=== PATIENT | male | born 1945 | race Caucasian/White ===

== ENCOUNTER → 2017-07-19 | Outpatient (CLI) | payer OTHER | LOC: FIMAGING 12:11 | PROVIDERS: ATTEND Internal Medicine | DX: D35.1 Benign neoplasm of parathyroid gland (principal) | CPT/HCPCS: 78070; A9500 ==

== ENCOUNTER → 2018-05-30 | Outpatient (CLI) | payer OTHER | LOC: FCPNEURO 21:30 | PROVIDERS: ATTEND Psychiatry & Neurology Sleep Medicine | DX: G47.52 REM sleep behavior disorder (principal) ==

== ENCOUNTER 2018-07-24 15:12 | Observation (INO) | payer OTHER ==
--- NOTE | 2018-07-24 16:02 | GHP ---
[f rep st] HISTORY AND PHYSICAL DATE OF ADMISSION: 07/24/2018 ADMITTING DIAGNOSIS: Nausea and dehydration. PAST MEDICAL HISTORY: Essential hypertension, coronary artery disease, posttraumatic stress disorder , anxiety, depression, BPH, mitral regurgitation, chronic kidney disease stage 3, status post parathy roidectomy, and obstructive sleep apnea. PAST SURGICAL HISTORY: Appendectomy and partial colon removal in 1994, right rotator cuff surgery in 2009, tonsillectomy as a child, and status post 1 stent placement to the circumflex in 2012. FAMILY HISTORY: Father diseased age 48 from [place]. Mother at age 79 from congestive heart madonna lure and abdominal aortic aneurysm. Siblings: brother with history of CVA, CABG in his 60s . SOCIAL HISTORY: Tobacco use: Nonsmoker. ALLERGIES: Cephalexin causes GI distress. HISTORY PRESENTING ILLNESS: Al is a 72-year-old male who presented to the office today complaining of about a 1 month history of intermittent nausea and vomiting. He says that it initially started w ith about a 4 day bout of nausea and vomiting, which seemed to resolve independently but then returne d about 4 days later, lingered for a couple of weeks and then resolved again. However, over the past 5 or so days he has been experiencing severe severe nausea and episodes of emesis throughout the day , which also wake him up during the night so that he vomits. He reports that he has been vomiting an ywhere from 4-6 times per day and has not been able to keep any food or fluids down for 5 days now. He also says he has not been able to take any medications. Also of note, he was seen in the office o n Sunday for a large, approximately 8 cm in diameter, abscess to his mid upper back. The abscess was drained and cultured revealing Proteus as a primary organism, Proteus mirabilis. He again though parker s not been able to take his antibiotics for treatment of this. He did see Dr. Ishaan Crooks to discu ss surgical drainage of the abscess, as well as multiple other cystic lesions that he has scattered o n his back and upper extremities. REVIEW OF SYSTEMS: GENERAL: Endorses chills and fatigue. Denies headache. ENT: Denies sore throa ts, sinus pressure or pain. RESPIRATORY: Denies cough, wheeze, shortness of breath. CARDIOVASCULAR : Denies chest pain, palpitations, irregular heartbeat, dizziness, lightheadedness. GI: Denies abd ominal pain, blood in stool, constipation, or diarrhea. Endorses nausea, vomiting. Does report 1 ep isode of a small amount of blood in his emesis a couple of days ago. MUSCULOSKELETAL: Denies joint aching or swelling. SKIN: Denies rash, itching, or hives. Complains of abscess to upper back, as w ell as cysts generally across back. NEUROLOGIC: Denies balance difficulty, difficulty speaking, diz ziness, fainting, lightheadedness. PSYCHIATRIC: Denies any acute mood changes. PHYSICAL EXAMINATION: GENERAL: Alert, oriented, in no acute distress, though does appear to be ill. HEAD: Normocephalic, atraumatic. EYES: EOMI. Pupils equal, round, reactive. SKIN: Abscess siddhartha suring approximately 8 cm in diameter to mid upper back with surrounding erythema. Skin is otherwise warm and dry. HEART: S1, S2. Regular rate and rhythm. No murmurs, rubs, gallops. LUNGS: Clear to auscultation bilaterally. No wheezing, rhonchi, or rales. ABDOMEN: Soft, nontender, nondistende d. Positive bowel sounds. EXTREMITIES: Without edema. NEUROLOGIC: Alert and oriented. Cooperati ve with exam. Gait normal. Strength and sensation normal. PSYCH: Mood and affect in full range. Good eye contact. Cognitive function intact. Cooperative with exam. ASSESSMENT AND PLAN: 1. Nausea. Labs pending including blood cultures. P.r.n. antiemetics. No obvious source of infect ion or cause of the nausea. 2. Dehydration. Fluid resuscitation to achieve rehydration. We will restart p.o.'s once he is able to tolerate them. 3. Abscess. Wound culture from the office identifies Proteus mirabilis as the primary organism. We will start IV antibiotics, as patient is unable to tolerate p.o. DISPOSITION: We will admit as observation during further workup. /[id number]/MODL
[2018-07-24] MEDS ORDERED: ONDANSETRON 4 MG/2 ML VIAL IVP PRN (16:06)
[2018-07-24] MEDS ORDERED: ACETAMINOPHEN 325 MG TAB PO PRN (16:06)
[2018-07-24] MEDS ORDERED: NS 1,000 ML IV ONE ×2 (16:08→23:30)
[2018-07-24 17:09] LABS: PLATELET COUNT 241 10^3/uL (150-400)
[2018-07-25] MEDS: LR 1,000 ML IV SCH ×2 (06:20→13:47)
--- NOTE | 2018-07-25 08:27 | ASMTCMCOM ---
CM Note CM Note Notes: Met with Pt & Chart reviewed for discharge. Al is a 72yr old admitted with intermittent nausea and dehydration for the past month. Pt has a Hx of Essential hypertension, CAD, PTSD, Anxiety, Depression, BPH, Mitral regurgitation, Chronic Kidney disease stage 3, sleep apnea. s/p Stent to circumflex 2012. Also, Pt has an abscess in his upper back that IV antibiotic will be started because he cannot take PO at this time. Dr Crooks will consult. Pt live in [place] with his partner Lori of 20yrs and they both have adult children in the area. Pt will likely return home independently with Lori when medically cleared. CM available if needs arise. PLAN: Likely Home Independently Date Signed: 07/25/2018 08:26 AM Electronically Signed By:Edwige Segura
[2018-07-25] MEDS: ONDANSETRON DISINTEGRATING 4 MG TAB PO PRN ×2 (09:07→13:49)
--- NOTE | 2018-07-25 09:49 | SOAPPROG ---
SOAP Progress Note Assessment/Plan: Assessment: 72 yo male with n/v for weeks w/ dehydration and inability to keep in food or medications, w/ recent back abscess treated by Dr Crooks 2 days ago and supposed to be on po abx but couldn't keep them in. -n/v/dehydration - feeling better finally w/ ivf and antiemetics, will try sips today and clears and see if can tolerate, will hold all meds except would like him back on outpt psych meds has severe PTSD/anxiety - spouse will bring in trintellix, will order quetiapine and see if he can keep these in. suspect his n /v may have been 2/2 travel medications for protection in [facility] but unknown for sure. -h/o htn/cad s/p stent - resume plavix niharika, holding metoprolol as bp has been low and he has been off of it for many days at this point, hr ok, will resume as soon as able (suspect bp will come up as he hydrates). -PTSD/anxiety - see above, will restart meds, partner will bring in his outpt trintellix today, resume quetiapine. -upper back abscess - Dr Crooks will see pt, cont on ceftriaxone for now until he can take po meds, awaiting cx results. -h/o gerd w/ abdominal pain - po ppi held, will change to iv ppi, checking u/s -dvt prop - will put on lovenox for now until safely back on plavix and ambulating -dispo - when able to take po's in, n/v stopped completely and feeling better again. Plan: 07/25/18 09:42 Subjective: Doing better, has not vomited overnight, but weak, has lot 10 pounds, no food in 4-5 days Objective: Vital Signs Temp Pulse Resp BP Pulse Ox 36.3 C 60 18 117/58 L 96 07/25/18 07:47 07/25/18 07:47 07/25/18 07:47 07/25/18 07:47 07/25/18 07:47 Laboratory Results 07/24/18 16:55 07/24/18 16:55 07/24/18 07/25/18 07/26/18 05:59 05:59 05:59 Intake Total 0 Output Total 200 Balance -200 Gen: a&o x 4, pleasant Heent: perr,eomi Neck: soft supple Chest CTA b CV: rrr ABd; ttp in mid epigastric area Ext: trace edema (usually has 1+ chronic stasis) - Pending Discharge Pending Discharge Within 48 Hours: Yes Pending Discharge Date: 07/27/18 Pending Discharge Time: 11:00 ICD10 Worksheet Patient Problems: Problems Problem Status Onset Seizure disorder Acute Post traumatic stress disorder (PTSD) Acute Hypertension Acute Atherosclerosis Acute Bipolar 1 disorder, depressed Acute
[2018-07-25] MEDS: PANTOPRAZOLE SODIUM 40 MG VIAL IVP SCH (11:39)
[2018-07-25] MEDS: ENOXAPARIN 40 MG/0.4 ML SYR SC SCH (11:39)
--- NOTE | 2018-07-25 14:44 | GCON ---
[f rep st] CONSULTATION CHIEF COMPLAINT: Nausea, vomiting, upper back abscess. HISTORY OF PRESENT ILLNESS: This is a 72-year-old male who was previously seen in our office on Sunday of this week for an upper back abscess. The abscess was incised and drained in the office at that time and he was placed on a course of oral antibiotics. He was advised to follow up in our office again today for a packing and dressing change. However, he came to the emergency department complaining of worsening nausea and vomiting. He has not been able to keep his antibiotics down. At the time of my visit, the patient reports that his nausea and vomiting have dramatically improved after aggressive fluid resuscitation. He denies fever and chills. He does endorse tenderness at the site of his incision. PAST MEDICAL HISTORY: Essential hypertension, coronary artery disease, PTSD, anxiety, depression, BPH, mitral regurgitation, chronic kidney disease, obstructive sleep apnea. PAST SURGICAL HISTORY: Appendectomy and partial colectomy in 1994, right rotator cuff repair, tonsillectomy, coronary artery stent placement in 2012. FAMILY MEDICAL HISTORY: Congestive heart failure, AAA, CVA, [place]. SOCIAL HISTORY: The patient is a nonsmoker. ALLERGIES: No true allergies, but Keflex causes GI upset. REVIEW OF SYSTEMS: Ten-point review of systems was performed and is negative aside from what is in the HPI. PHYSICAL EXAMINATION: GENERAL: Alert 72-year-old male, resting comfortably in a hospital bed, in no acute distress. HEENT: Normocephalic, atraumatic. No gross hearing deficits. Mucous membranes moist. PERRLA. NECK: Supple. Trachea is midline. CARDIAC: Regular rate and rhythm. No clicks, murmurs, or rubs. LUNGS: Clear to auscultation bilaterally. No wheezing, rhonchi, or rales. ABDOMEN: Soft, nontender, nondistended. NEUROLOGIC: Alert and oriented x3. PSYCHIATRIC: Appropriate mood and affect. INTEGUMENTARY: Prior abscess in the mid upper back. Small amount of purulent drainage present. Induration and erythema remain surrounding the incision; however, much improved from the time of I and D. Mildly tender to palpation. IMPRESSION AND PLAN: This is a 72-year-old male who we saw in our office 3 days ago for an incision and drainage of a mid upper back abscess. His cultures grew proteus. He was placed on a course of oral antibiotics; however, was unable to complete the course due to severe nausea and vomiting. The patient is now feeling much better after fluid resuscitation. He is tolerating small amounts of oral fluids. As far as his abscess, continue intravenous antibiotics while inpatient. His wound was repacked and redressed today. Recommend daily packing and dressing changes while in the hospital. Follow up in our office 1 to 2 days after discharge for wound check. /[id number]/MODL MTDD
[2018-07-25] MEDS: Vortioxetine Hydrobromide [Trintellix] 20 MG PO SCH (16:03)
[2018-07-26] MEDS ORDERED: QUEtiapine FUMARATE 25 MG TAB PO SCH (09:00)
[2018-07-26] MEDS ORDERED: CLOPIDOGREL BISULFATE 75 MG TAB PO SCH (09:00)
[2018-07-26] MEDS: ENOXAPARIN 40 MG/0.4 ML SYR SC SCH (09:11)
[2018-07-26] MEDS: Vortioxetine Hydrobromide [Trintellix] 20 MG PO SCH (09:12)
[2018-07-26] MEDS: PANTOPRAZOLE SODIUM 40 MG VIAL IVP SCH (09:12)
[2018-07-26] MEDS ORDERED: METOPROLOL TARTRATE 25 MG TAB PO SCH (09:45)
--- NOTE | 2018-07-26 09:50 | SOAPPROG ---
SOAP Progress Note Assessment/Plan: Assessment: 72 yo male with n/v for weeks w/ dehydration and inability to keep in food or medications, w/ recent back abscess treated by Dr Crooks 2 days ago and supposed to be on po abx but couldn't keep them in. -n/v/dehydration - feeling better finally w/ ivf and antiemetics, will try sips today and clears and see if can tolerate, will hold all meds except would like him back on outpt psych meds has severe PTSD/anxiety - spouse will bring in trintellix, will order quetiapine and see if he can keep these in. suspect his n /v may have been 2/2 travel medications for protection in [facility] but unknown for sure. -h/o htn/cad s/p stent - resume plavix niharika, holding metoprolol as bp has been low and he has been off of it for many days at this point, hr ok, will resume as soon as able (suspect bp will come up as he hydrates). -PTSD/anxiety - see above, will restart meds, partner will bring in his outpt trintellix today, resume quetiapine. -upper back abscess - Dr Crooks will see pt, cont on ceftriaxone for now until he can take po meds, awaiting cx results. -h/o gerd w/ abdominal pain - po ppi held, will change to iv ppi, checking u/s -dvt prop - will put on lovenox for now until safely back on plavix and ambulating -dispo - when able to take po's in, n/v stopped completely and feeling better again. Plan: 07/25/18 09:42 07/26/18 09:44 72 yo male w/ n/v/dehydration -better now w/ ivf, has not had any further vomiting, able to keep in clears, will advance diet now. If able to take in po's will d/c home later today w/ partner, Lori. He had n/v likely 2/2 malaria medication prophylaxis from his trip to [facility]. -PTSD/anxiety- on quetiapine and restarting trintellix. -Upper back abscess - wound packed and changed yesterday, will need this changed again per surgery notes prior to dc/ will need f/u with Dr Crooks' office on Sunday. Appreciate their help. Will change back to po abx w/ keflex tomorrow (just had IV ceftriaxone this am). -gerd - cont ppi, change to po -dvt proph -htn - bp this am 150 systolic - will restart low dose metoprolol -dispo - d/c home likely later today if able to consume advanced diet. 07/26/18 09:53 Subjective: Doing much better, feeling better, not really hungry Objective: Vital Signs Temp Pulse Resp BP Pulse Ox 36.6 C 52 L 16 122/64 H 93 07/26/18 04:00 07/26/18 04:00 07/26/18 04:00 07/26/18 04:00 07/26/18 04:00 Microbiology 07/25/18 08:25 Gastrointestinal Tract Panel (PCR) - Final Stool E.coli Enteroaggregative(Eaec) Laboratory Results 07/26/18 04:10 07/26/18 04:10 07/25/18 07/26/18 07/27/18 05:59 05:59 05:59 Intake Total 0 1748 Output Total 200 Balance -200 1748 Gen: A&O x 4 Heent: perr, eomi Neck: soft/supple Chest: cta b CV: rrr ABd: soft mildly ttp in midepig area Ext: no edema - Pending Discharge Pending Discharge Within 24 Hours: Yes Pending Discharge Date: 07/27/18 Pending Discharge Time: 11:00 ICD10 Worksheet Patient Problems: Problems Problem Status Onset Seizure disorder Acute Post traumatic stress disorder (PTSD) Acute Hypertension Acute Atherosclerosis Acute Bipolar 1 disorder, depressed Acute
[2018-07-26 09:53] VITALS: BP 157/72
--- NOTE | 2018-07-26 15:48 | GDS ---
[f rep st] DISCHARGE SUMMARY HISTORY AND HOSPITAL COURSE: The patient is a 72-year-old gentleman, who returned from a recent trip to [facility] with a complaint of ongoing nausea, vomiting, and dehydration. This had lasted several weeks. It would calm down, but then start up again. He was seen in the office by Amanda Knapp and noted he had not even been able to take his usual medications for 4 or 5 days prior to this. He was sent to the hospital for admission and further workup. While he was in the hospital, he was treated with IV fluids and Zofran. His nausea quickly subsided. His hydration status resumed to normal. He started feeling better, and was able to advance diet to clears and then to a full regular diet again , tolerating it well. In exploring his history, the nausea and vomiting correlated with his taking M alarone, and have subsided with the completion of his Malarone course. He also of note has recently had an abscess on his upper back treated with I and D by Dr. Ishaan Crooks 2 days prior to admission. He was supposed to be on oral Keflex, but he could not keep this down. He was started on IV ceftri axone while in the hospital. Dr. Crooks' service came to see the patient while he was in, and repacke d the wound and re-dressed it. He will need followup with Dr. Crooks' office early next week on this, as well. He was able to resume his oral medications, and is feeling good and requesting at this poi nt to return home where he lives with his partner. During the hospital course, he did have an abdomi nal ultrasound, which was grossly normal except for a coarse texture to the liver. DISCHARGE MEDICATIONS: Include aspirin 325 mg 1 p.o. daily, Plavix 75 mg 1 p.o. daily, donepezil 10 mg p.o. daily, metoprolol 12.5 mg p.o. twice daily, quetiapine 25 mg p.o. daily, Flomax 0.4 mg p.o. d mi, Trintellix 20 mg p.o. daily, Protonix 40 mg p.o. daily, potassium 10 mEq p.o. daily, allopurino l 100 mg p.o. daily, and Mirapex 1 mg daily. He also will resume taking Keflex to finish the course prescribed to him by Dr. Crooks. He has this medication at home. It is 500 mg 3 times a day. He yuniel l follow up again with Dr. Crooks in 3 days in his office and will follow up with me, his PCP, at the end of next week. /[id number]/MODL
[2018-07-27] MEDS ORDERED: DONEPEZIL HCL 5 MG TAB PO SCH (09:00)
[2018-07-27] MEDS ORDERED: ASPIRIN 325 MG TAB PO SCH (09:00)
== END 2018-07-26 16:00 | disposition home or self-care (01) ==
LOC: F1N 15:51
PROVIDERS: ADMIT Internal Medicine; ATTEND Internal Medicine
DX: R11.2 Nausea with vomiting, unspecified (principal); E86.0 Dehydration; B96.20 Unspecified Escherichia coli [E. coli] as the cause of diseases classified elsewhere; L02.212 Cutaneous abscess of back [any part, except buttock and flank]; I12.9 Hypertensive chronic kidney disease with stage 1 through stage 4 chronic kidney disease, or unspecified chronic kidney disease; I25.10 Atherosclerotic heart disease of native coronary artery without angina pectoris; F43.10 Post-traumatic stress disorder, unspecified; F41.9 Anxiety disorder, unspecified; F32.9 Major depressive disorder, single episode, unspecified; N40.0 Benign prostatic hyperplasia without lower urinary tract symptoms; I34.0 Nonrheumatic mitral (valve) insufficiency; N18.3 Chronic kidney disease, stage 3 (moderate); G47.33 Obstructive sleep apnea (adult) (pediatric); K21.9 Gastro-esophageal reflux disease without esophagitis; Z82.49 Family history of ischemic heart disease and other diseases of the circulatory system; Z95.5 Presence of coronary angioplasty implant and graft
CPT/HCPCS: 76705; G0378; G0379; J0696; J1650; J2405